=== PATIENT | female | born 1930 | race Caucasian/White ===

== ENCOUNTER 2020-07-02 23:40 | Emergency (ER) | payer MEDICARE, BC ==
--- NOTE | 2020-07-03 19:44 | EDM.PDOC ---
ED HPI GENERAL MEDICAL PROBLEM - General Chief Complaint: Gastrointestinal Problem Stated Complaint: constipation Time Seen by Provider: 07/02/20 23:40 Source of Information: Reports: Patient History Limitations: Reports: No Limitations - History of Present Illness INITIAL COMMENTS - FREE TEXT/NARRATIVE: Pt. presents to ER with complaints of fecal impaction. Pt. states that she has been constipated and has been taking stool softeners as well as mag citrate. Pt. states that she feels that her lower bowel is blocked. Pt. complains of diffuse abdominal cramping. Denies any fever or chills. Pt. states that she has a longstanding history of constipation in the past. She states that her last BM was 2 days ago and it was quite hard. Onset: Today Onset Date: 07/03/20 Location: Reports: Abdomen, Generalized Lower Abdominal Pain Score (Numeric/FACES): 7 - Related Data Allergies Allergy/AdvReac Type Severity Reaction Status Date / Time No Known Allergies Allergy Verified 07/03/20 00:09 Home Meds: Home Meds Bumetanide 0.5 mg PO DAILY 07/03/20 [History] Diltiazem [Dilacor XR] 120 mg PO DAILY 07/03/20 [History] Sertraline [Zoloft] 25 mg PO DAILY 07/03/20 [History] Simvastatin 10 mg PO DAILY 07/03/20 [History] Tolterodine Tartrate [Tolterodine Tartrate ER] 4 mg PO DAILY 07/03/20 [History] Past Medical History Cardiovascular History: Reports: High Cholesterol, Hypertension Gastrointestinal History: Reports: Chronic Constipation Psychiatric History: Reports: Depression Social & Family History - Tobacco Use Tobacco Use Status *Q: Never Tobacco User ED ROS GENERAL - Review of Systems Review Of Systems: Comprehensive ROS is negative, except as noted in HPI. ED EXAM, GENERAL - Physical Exam Exam: See Below GI/Abdominal: Normal Bowel Sounds, Soft, Non-Tender, No Organomegaly, No Distention, No Mass, Pelvis Stable (Female) Exam: Normal External Exam Rectal (Female) Exam: Other (large mass of stool noted in distal rectum. Unable to reach digitally for disimpaction. Post enema, ULISES did revealed resolution of the impacted stool in the colon.) Course - Vital Signs Last Recorded V/S: Last Vital Signs Temp 36.5 C 07/02/20 23:30 Pulse 87 07/02/20 23:30 Resp 16 07/02/20 23:30 BP 156/84 H 07/02/20 23:30 Pulse Ox 97 07/02/20 23:30 - Re-Assessments/Exams Free Text/Narrative Re-Assessment/Exam: Pt. was given a tap water enema with large result. She reported feeling much improved post procedure. Departure - Departure Time of Disposition: 00:35 Disposition: Home, Self-Care 01 Clinical Impression: Constipation - Discharge Information Instructions: Constipation, Adult Forms: ED Department Discharge Additional Instructions: Start miralax 17gm (1 capful) daily mixed in 12 oz. of water. Increase your consumption of water. Recheck in clinic in 10-14 days. Sepsis Event Note (ED) - Evaluation Sepsis Screening Result: No Definite Risk - Problem List Review Problem List Initiated/Reviewed/Updated: Yes - Assessment/Plan Plan: Pt. reported feeling much better post enema. She reports that she has not had a colonoscopy that she can remember. She was advised to follow-up with her PCP and get this scheduled, given her history of problems with having bowel movements. Miralax 17 gm daily. Increase consumption of water. Advised to use some milk of mag for the next few days to encourage passing the hard stool.
== END 2020-07-03 00:30 | disposition home or self-care (01) ==
LOC: VM.ED 23:40
DX: K59.00 Constipation, unspecified (principal); E78.00 Pure hypercholesterolemia, unspecified; I10 Essential (primary) hypertension; Z79.899 Other long term (current) drug therapy
CPT/HCPCS: 99283